=== PATIENT | female | born 1960 | race Caucasian/White ===

== ENCOUNTER 2021-04-28 07:33 | Outpatient (CLI) | payer OTHER | END 2021-04-28 07:34 | disposition home or self-care (01) | LOC: CSHULT 07:33 | PROVIDERS: ATTEND Anesthesiology Pain Medicine | DX: E07.89 Other specified disorders of thyroid (principal); R93.89 Abnormal findings on diagnostic imaging of other specified body structures | CPT/HCPCS: 76536 ==

== ENCOUNTER 2021-08-10 13:00 | Outpatient (CLI) | payer OTHER | END 2021-08-10 13:01 | disposition home or self-care (01) | LOC: CSHWCC 13:00 | PROVIDERS: ATTEND Nurse Practitioner Family | DX: T81.89XD Other complications of procedures, not elsewhere classified, subsequent encounter (principal) | CPT/HCPCS: 99213; G0463 ==